=== PATIENT | female | born 1980 | race Two or more races ===

== ENCOUNTER 2018-09-30 09:44 | Emergency (ER) | payer MEDICAID ==
[~2018-09-30] VITALS: Ht 167.6 cm; Wt 94.3 kg
[2018-09-30 10:10] VITALS: BP 139/89
[2018-09-30 10:31] LABS: Urine Bacteria NONE SEEN /hpf (None Seen); Urine Blood TRACE /uL (Negative); Urine Mucus FEW (None Seen); Urine Specific Gravity 1.022 (1.001-1.035); Urine WBC <1 /hpf (0 - 5)
[2018-09-30] MEDS ORDERED: KETOROLAC TROMETH 60MG/2ML VIAL IM ONE (11:15)
== END 2018-09-30 12:16 | disposition home or self-care (01) ==
LOC: ER 09:44
DX: N83.202 Unspecified ovarian cyst, left side (principal)
CPT/HCPCS: 74176; 81001; 81025; 96372; 99284; J1885

== ENCOUNTER 2019-08-17 19:19 | Emergency (ER) | payer MEDICAID ==
[~2019-08-17] VITALS: Ht 162.6 cm; Wt 95.3 kg
[2019-08-17] MEDS ORDERED: diphenhdrAMINE HCL 25 MG CAP PO ONE ×2 (19:53→20:00)
[2019-08-17 21:05] VITALS: BP 112/60
[2019-08-17] MEDS ORDERED: methylPREDNISolone SOD SUCC 125 MG/2 ML VL IM ONE (21:15)
== END 2019-08-17 22:23 | disposition home or self-care (01) ==
LOC: ER 19:19
DX: T78.40XA Allergy, unspecified, initial encounter (principal)
CPT/HCPCS: 96372; 99283; J2930

== ENCOUNTER 2021-08-28 17:59 | Emergency (ER) | payer MEDICAID ==
[~2021-08-28] VITALS: Ht 165.1 cm; Wt 90.7 kg
[2021-08-28 20:10] VITALS: BP 127/85
[2021-08-28] MEDS ORDERED: ONDANSETRON ODT 4 MG TAB PO ONE (21:15)
[2021-08-28] MEDS ORDERED: HYDROcodone-ACET 10/325MG TAB PO ONE (21:15)
[2021-08-28 23:34] LABS: Basophils # (auto) 0 10 ^3/uL (0-0.2); Basophils % (auto) 0.7 % (0.0-2.0); Eosinophils # (auto) 0.2 10 ^3/uL (0-0.8); Lymphocytes # (auto) 1.7 10 ^3/uL (0.4-5.4); Mean Corpuscular Hemoglobin 21.9 pg (28.0-32.0); Monocytes # (auto) 0.8 10 ^3/uL (0-1.3); Neutrophils # (auto) 3.8 10 ^3/uL (1.6-8.6); White Blood Cell 6.5 10^3/uL (4.4-10.8)
[2021-08-28 23:35] LABS: Eosinophils % (auto) 3.3 % (0.0-7.0); Hematocrit 37.1 % (36.0-46.0); Hemoglobin 11.5 g/dL (12.2-16.2); Lymphocytes % (auto) 25.8 % (10.0-50.0); Mean Corpuscular Hgb Conc. 31.1 g/dL (32.0-36.0); Mean Corpuscular Volume 70.3 fL (80.0-100.0); Monocytes % (auto) 11.8 % (0.0-12.0); Neutrophils % (auto) 58.4 % (37.0-80.0); Red Blood Cells 5.28 10^6/uL (4.0-5.20)
[2021-08-28 23:36] LABS: Red Cell Distribution Width 20.2 % (11.8-14.3)
[2021-08-28 23:50] LABS: Albumin 3.7 g/dL (3.4-5.0); Calcium 8.5 mg/dL (8.5-10.1); Potassium 4.2 mmol/L (3.5-5.1)
[2021-08-28 23:58] LABS: BUN/Creatinine Ratio 17.9; Bilirubin, Total 0.2 mg/dL (0.2-1.0); CRP High Sensitivity 3.02 mg/dL (< 0.3)
[2021-08-29] MEDS ORDERED: cefTRIAXone SOD 1,000 MG VL IM ONE
== END 2021-08-29 01:30 | disposition home or self-care (01) ==
LOC: ER 17:59
DX: L03.317 Cellulitis of buttock (principal); E03.9 Hypothyroidism, unspecified; Z86.2 Personal history of diseases of the blood and blood-forming organs and certain disorders involving the immune mechanism
CPT/HCPCS: 36415; 72192; 80053; 83605; 85025; 86141; 87040; 96372; 99284; J0696; Q0162

== ENCOUNTER 2022-05-20 04:04 | Emergency (ER) | payer MEDICAID ==
[~2022-05-20] VITALS: Ht 162.6 cm; Wt 95.5 kg
[2022-05-20] MEDS ORDERED: ALBUTEROL SULF 2.5 MG/0.5ML(0.5%) NEB SOLN NEB ONE (04:45)
[2022-05-20] MEDS ORDERED: IPRATROPIUM BROM 0.5 MG/2.5ML INH SOL NEB ONE (04:45)
[2022-05-20 06:18] LABS: Basophils # (auto) 0.1 10 ^3/uL (0-0.2); Basophils % (auto) 1.1 % (0.0-2.0); Hemoglobin 12.2 g/dL (12.2-16.2); Monocytes # (auto) 0.7 10 ^3/uL (0-1.3); Monocytes % (auto) 7.6 % (0.0-12.0); Neutrophils # (auto) 5.3 10 ^3/uL (1.6-8.6); White Blood Cell 8.6 10^3/uL (4.4-10.8)
[2022-05-20 06:23] LABS: Eosinophils # (auto) 0.6 10 ^3/uL (0-0.8); Eosinophils % (auto) 7.5 % (0.0-7.0); Hematocrit 37.8 % (36.0-46.0); Lymphocytes % (auto) 22.7 % (10.0-50.0); Mean Corpuscular Hemoglobin 25.5 pg (28.0-32.0); Mean Corpuscular Hgb Conc. 32.3 g/dL (32.0-36.0); Neutrophils % (auto) 61.1 % (37.0-80.0); Red Blood Cells 4.78 10^6/uL (4.0-5.20); Red Cell Distribution Width 14.5 % (11.8-14.3)
[2022-05-20 06:25] LABS: Albumin 3.3 g/dL (3.4-5.0); Potassium 3.8 mmol/L (3.5-5.1)
[2022-05-20 06:30] LABS: BUN/Creatinine Ratio 13.6; Bilirubin, Total 0.4 mg/dL (0.2-1.0)
[2022-05-20] MEDS ORDERED: ALBUAER3 IN (08:43)
[2022-05-20] MEDS ORDERED: AZIT1POW PO (08:43)
[2022-05-20] MEDS ORDERED: METH4PAK PO (08:43)
[2022-05-20 08:44] VITALS: BP 133/86
[2022-05-20] MEDS ORDERED: ALBUTEROL SULF 2.5 MG/0.5ML(0.5%) NEB SOLN HHN ONE (08:45)
[2022-05-20] MEDS ORDERED: methylPREDNISolone SOD SUCC 40 MG/ML VL IM ONE (08:45)
[2022-05-20] MEDS ORDERED: IPRATROPIUM BROM 0.5 MG/2.5ML INH SOL HHN ONE (08:45)
== END 2022-05-20 09:03 | disposition home or self-care (01) ==
LOC: ER 04:04
DX: J20.9 Acute bronchitis, unspecified (principal); E03.9 Hypothyroidism, unspecified; R07.89 Other chest pain; Z86.2 Personal history of diseases of the blood and blood-forming organs and certain disorders involving the immune mechanism; Z20.822 Contact with and (suspected) exposure to COVID-19
CPT/HCPCS: 36415; 71046; 80053; 84484; 85025; 87426; 94640; 94644; 96372; 99285; J2920; J7644

== ENCOUNTER 2022-07-18 07:56 | Emergency (ER) | payer MEDICAID ==
[~2022-07-18] VITALS: Ht 162.6 cm; Wt 100.0 kg
[~2022-07-18 07:56] MED LIST: ALBUAER3 IN; AZIT1POW PO; METH4PAK PO
[2022-07-18 08:21] VITALS: BP 136/84
[2022-07-18] MEDS ORDERED: ALBUTEROL SULF 2.5 MG/0.5ML(0.5%) NEB SOLN NEB ONE (08:30)
== END 2022-07-18 10:44 | disposition home or self-care (01) ==
LOC: ER 07:56
DX: J06.9 Acute upper respiratory infection, unspecified (principal); Z20.822 Contact with and (suspected) exposure to COVID-19
CPT/HCPCS: 36415; 71046; 87426; 94640

== ENCOUNTER 2022-12-20 20:26 | Inpatient (IN) | payer MEDICAID ==
[~2022-12-20] VITALS: Ht 165.1 cm; Wt 69.7 kg
[2022-12-20] MEDS ORDERED: DexAMETHasone SOD PHOS 10MG/1ML VIAL INJ IM ONE (20:45)
[2022-12-20] MEDS ORDERED: ALBUTEROL SULF 2.5 MG/0.5ML(0.5%) NEB SOLN NEB ONE (20:45)
[2022-12-20] MEDS ORDERED: IPRATROPIUM BROM 0.5 MG/2.5ML INH SOL NEB ONE (20:45)
[2022-12-20 21:32] LABS: Monocytes # (auto) 0.5 10 ^3/uL (0-1.3); Neutrophils # (auto) 7.1 10 ^3/uL (1.6-8.6); White Blood Cell 9.2 10^3/uL (4.4-10.8)
[2022-12-20 21:33] LABS: Basophils # (auto) 0.1 10 ^3/uL (0-0.2); Basophils % (auto) 0.8 % (0.0-2.0); Eosinophils # (auto) 0.8 10 ^3/uL (0-0.8); Eosinophils % (auto) 8.3 % (0.0-7.0); Hemoglobin 12.5 g/dL (12.2-16.2); Lymphocytes # (auto) 0.8 10 ^3/uL (0.4-5.4); Lymphocytes % (auto) 8.7 % (10.0-50.0); Mean Corpuscular Hemoglobin 24.4 pg (28.0-32.0); Mean Corpuscular Hgb Conc. 32.1 g/dL (32.0-36.0); Mean Corpuscular Volume 75.9 fL (80.0-100.0); Monocytes % (auto) 5.1 % (0.0-12.0); Neutrophils % (auto) 77.1 % (37.0-80.0); Nucleated Red Blood Cells % 0.5 %; Red Blood Cells 5.14 10^6/uL (4.0-5.20)
[2022-12-20] MEDS ORDERED: ACETAMINOPHEN 500 MG TAB PO ONE (21:45)
[2022-12-20] MEDS ORDERED: ONDANSETRON HCL 4 MG/2 ML VIAL IM ONE (21:45)
[2022-12-20 21:48] LABS: INR 0.87 (0.9-1.15); Partial Thromboplastin Time 31.4 sec (24.6-33.4)
[2022-12-20 21:49] LABS: Albumin 3.8 g/dL (3.4-5.0); Calcium 9.3 mg/dL (8.5-10.1); Magnesium 2.3 mg/dL (1.6-2.6); Potassium 3.9 mmol/L (3.5-5.1)
[2022-12-20 21:51] LABS: BUN/Creatinine Ratio 13.5 (10.0-20.0)
[2022-12-20 21:53] LABS: Bilirubin, Total 0.3 mg/dL (0.2-1.0); Total Protein 8.1 g/dL (6.4-8.2)
[2022-12-20 23:02] LABS: Urine Bacteria NONE SEEN /hpf (None Seen); Urine Blood Negative /uL (Negative); Urine Mucus FEW (None Seen); Urine Specific Gravity 1.019 (1.001-1.035); Urine WBC <1 /hpf (0 - 5)
[2022-12-21] MEDS ORDERED: AZITHROMYCIN 250 MG TAB PO ONE (01:00)
[2022-12-21] MEDS ORDERED: cefTRIAXone SOD 1,000 MG VL IM ONE (01:00)
[2022-12-21] MEDS ORDERED: cefTRIAXone 1GM/50ML D5W 50 ML IV ONE (01:00)
[2022-12-21] MEDS ORDERED: AZITHROMYCIN 500MG/ 250ML 250 ML IV ONE (01:00)
[2022-12-21] MEDS ORDERED: HYDROmorphone HCL 2 MG/ML VL/or syr IV ONE (02:00)
[2022-12-21] MEDS ORDERED: ONDANSETRON HCL 4 MG/2 ML VIAL IV ONE (02:00)
[2022-12-21 02:43] VITALS: BP 118/71
[2022-12-21] MEDS ORDERED: ALBUTEROL SULF 2.5 MG/0.5ML(0.5%) NEB SOLN NEB PRN (02:45)
[2022-12-21] MEDS ORDERED: TEMAZEPAM 15 MG CAP PO PRN (02:45)
[2022-12-21] MEDS ORDERED: NITROGLYCERIN 0.4 MG SL TAB SL PRN (02:45)
[2022-12-21] MEDS: LEVOTHYROXINE SODIUM 50 MCG TAB PO SCH (06:31)
[2022-12-21 06:33] LABS: Urine WBC None Seen /hpf (0 - 5)
[2022-12-21 07:06] LABS: Urine Bacteria NONE SEEN /hpf (None Seen); Urine Blood Negative /uL (Negative); Urine Specific Gravity 1.009 (1.001-1.035)
[2022-12-21] MEDS: ACETAMINOPHEN 325 MG TAB PO PRN (09:38)
[2022-12-21] MEDS: SERTRALINE HCL 50 MG TAB PO SCH (09:39)
[2022-12-21] MEDS: PANTOPRAZOLE 40 MG TAB PO SCH (09:39)
[2022-12-21] MEDS: ENOXAPARIN SOD 40 MG/0.4 ML SYRINGE SC SCH (09:40)
[2022-12-21] MEDS: ONDANSETRON HCL 4 MG/2 ML VIAL IV PRN ×2 (09:42→16:31)
[2022-12-21] MEDS: MORPHINE SULFATE INJ 2 MG/ml SYRG IV PRN ×2 (11:41→16:39)
[2022-12-21] MEDS: SODIUM CHLORIDE 0.9% 1,000 ML IV SCH (14:36)
[2022-12-21] MEDS: IPRATROPIUM BROM 0.5 MG/2.5ML INH SOL NEB SCH (19:10)
[2022-12-21] MEDS: ALBUTEROL SULF 2.5 MG/0.5ML(0.5%) NEB SOLN NEB SCH (19:10)
[2022-12-21] MEDS: cefTRIAXone 1GM/50ML D5W 50 ML IV SCH (20:44)
[2022-12-21] MEDS ORDERED: LEVO150T10 PO (23:58)
[2022-12-21] MEDS ORDERED: LORA-622 PO (23:58)
[2022-12-22] MEDS: ACETAMINOPHEN 325 MG TAB PO PRN ×3 (00:14→22:18)
[2022-12-22] MEDS: SODIUM CHLORIDE 0.9% 1,000 ML IV SCH (02:30)
[2022-12-22 04:31] VITALS: BP_SYST 128; BP_SYST 149; BP_DIAS 56; BP_DIAS 86
[2022-12-22 06:00] LABS: Basophils # (auto) 0.1 10 ^3/uL (0-0.2); Eosinophils # (auto) 0.2 10 ^3/uL (0-0.8); Monocytes # (auto) 1.3 10 ^3/uL (0-1.3)
[2022-12-22] MEDS: ALBUTEROL SULF 2.5 MG/0.5ML(0.5%) NEB SOLN NEB SCH ×3 (06:00→18:44)
[2022-12-22] MEDS: IPRATROPIUM BROM 0.5 MG/2.5ML INH SOL NEB SCH ×3 (06:00→18:44)
[2022-12-22 06:03] LABS: Basophils % (auto) 1.2 % (0.0-2.0); Eosinophils % (auto) 1.8 % (0.0-7.0); Hematocrit 32.4 % (36.0-46.0); Lymphocytes # (auto) 1.7 10 ^3/uL (0.4-5.4); Lymphocytes % (auto) 14.1 % (10.0-50.0); Mean Corpuscular Hemoglobin 24.5 pg (28.0-32.0); Mean Corpuscular Hgb Conc. 33.9 g/dL (32.0-36.0); Mean Corpuscular Volume 72.2 fL (80.0-100.0); Monocytes % (auto) 10.2 % (0.0-12.0); Neutrophils % (auto) 72.7 % (37.0-80.0); Nucleated Red Blood Cells % 0.3 %; Red Blood Cells 4.49 10^6/uL (4.0-5.20); Red Cell Distribution Width 15.1 % (11.8-14.3); White Blood Cell 12.4 10^3/uL (4.4-10.8)
[2022-12-22] MEDS: LEVOTHYROXINE SODIUM 50 MCG TAB PO SCH (06:15)
[2022-12-22 06:22] LABS: BUN/Creatinine Ratio 18.3 (10.0-20.0); Calcium 8.6 mg/dL (8.5-10.1); Potassium 3.6 mmol/L (3.5-5.1)
[2022-12-22 09:00] VITALS: BP 104/67
[2022-12-22] MEDS: PANTOPRAZOLE 40 MG TAB PO SCH (09:28)
[2022-12-22] MEDS: SERTRALINE HCL 50 MG TAB PO SCH (09:28)
[2022-12-22] MEDS: ENOXAPARIN SOD 40 MG/0.4 ML SYRINGE SC SCH (09:29)
[2022-12-22] MEDS ORDERED: LORATADINE 10 MG TAB PO SCH (10:00)
[2022-12-22 13:00] VITALS: BP_SYST 127; BP_SYST 150; BP_DIAS 78
[2022-12-22 16:43] VITALS: BP 123/70
[2022-12-22 20:00] VITALS: BP 126/71
[2022-12-22] MEDS: cefTRIAXone 1GM/50ML D5W 50 ML IV SCH (20:57)
[2022-12-22] MEDS: methylPREDNISolone SOD SUCC 40 MG/ML VL IV SCH (20:58)
[2022-12-22] MEDS: LORATADINE 10 MG TAB PO SCH (20:58)
[2022-12-22] MEDS: MONTELUKAST SODIUM 10 MG TAB PO SCH ×2 (20:58)
[2022-12-22 22:00] VITALS: BP_SYST 126; BP_SYST 131; BP_DIAS 52; BP_DIAS 71
[2022-12-22] MEDS: AZITHROMYCIN 500MG/ 250ML 250 ML IV SCH ×2 (22:18)
[2022-12-23 05:00] VITALS: BP 119/76
[2022-12-23 06:46] LABS: Basophils # (auto) 0 10 ^3/uL (0-0.2); Eosinophils # (auto) 0.1 10 ^3/uL (0-0.8); Mean Corpuscular Hemoglobin 24.5 pg (28.0-32.0); Monocytes # (auto) 0.2 10 ^3/uL (0-1.3)
[2022-12-23 06:54] LABS: Basophils % (auto) 0.3 % (0.0-2.0); Hematocrit 34.6 % (36.0-46.0); Hemoglobin 11.2 g/dL (12.2-16.2); Lymphocytes # (auto) 1.2 10 ^3/uL (0.4-5.4); Lymphocytes % (auto) 11.9 % (10.0-50.0); Mean Corpuscular Hgb Conc. 32.5 g/dL (32.0-36.0); Mean Corpuscular Volume 75.1 fL (80.0-100.0); Monocytes % (auto) 2.2 % (0.0-12.0); Neutrophils # (auto) 8.3 10 ^3/uL (1.6-8.6); Neutrophils % (auto) 84.6 % (37.0-80.0); Red Cell Distribution Width 15.4 % (11.8-14.3); White Blood Cell 9.8 10^3/uL (4.4-10.8)
[2022-12-23] MEDS ORDERED: LEVOTHYROXINE SODIUM 112 MCG TAB PO SCH (07:00)
[2022-12-23 07:28] LABS: Potassium 4.3 mmol/L (3.5-5.1)
[2022-12-23 07:32] LABS: Calcium 8.3 mg/dL (8.5-10.1)
[2022-12-23] MEDS: ALBUTEROL SULF 2.5 MG/0.5ML(0.5%) NEB SOLN NEB SCH ×2 (07:34→13:31)
[2022-12-23] MEDS: IPRATROPIUM BROM 0.5 MG/2.5ML INH SOL NEB SCH ×2 (07:34→13:31)
[2022-12-23 08:00] VITALS: BP 126/85
[2022-12-23 09:00] VITALS: BP 126/85
[2022-12-23] MEDS: methylPREDNISolone SOD SUCC 40 MG/ML VL IV SCH (09:27)
[2022-12-23] MEDS: ACETAMINOPHEN 325 MG TAB PO PRN (09:28)
[2022-12-23] MEDS: ENOXAPARIN SOD 40 MG/0.4 ML SYRINGE SC SCH (09:28)
[2022-12-23] MEDS: SERTRALINE HCL 50 MG TAB PO SCH (09:29)
[2022-12-23] MEDS: PANTOPRAZOLE 40 MG TAB PO SCH (09:29)
[2022-12-23] MEDS: LORATADINE 10 MG TAB PO SCH (09:29)
[2022-12-23] MEDS ORDERED: LEV112T PO (10:51)
[2022-12-23] MEDS ORDERED: LEVO500T31 PO (10:51)
[2022-12-23] MEDS ORDERED: ALBUAER3 IN (10:51)
[2022-12-23 13:00] VITALS: BP 121/77
== END 2022-12-23 17:23 | disposition home or self-care (01) | DRG 720 ==
LOC: ER 20:26 → OVERFLOW 12-21 02:32 → WEST WING 12-21 22:10
PROVIDERS: ADMIT Nurse Practitioner; ATTEND Nurse Practitioner Acute Care
DX: A41.9 Sepsis, unspecified organism (principal); J96.01 Acute respiratory failure with hypoxia; J15.6 Pneumonia due to other Gram-negative bacteria; J44.0 Chronic obstructive pulmonary disease with (acute) lower respiratory infection; J45.901 Unspecified asthma with (acute) exacerbation; E03.9 Hypothyroidism, unspecified; E66.9 Obesity, unspecified; Z20.822 Contact with and (suspected) exposure to COVID-19; F32.A Depression, unspecified; Z68.25 Body mass index [BMI] 25.0-25.9, adult; Z86.16 Personal history of COVID-19
CPT/HCPCS: 36415; 71045; 80048; 80053; 81001; 83735; 83880; 84443; 84484; 84702; 85025; 85610; 85730; 86141; 87426; 94640; 96365; 96367; 96372; 96375; 99291; G0378; J0696; J1100; J2405

== ENCOUNTER 2023-06-30 12:32 | Inpatient (IN) | payer MEDICAID ==
[~2023-06-30] VITALS: Ht 167.6 cm; Wt 97.0 kg
[~2023-06-30 12:32] MED LIST changes: +LEV112T PO; +LEVO150T10 PO; +LEVO500T31 PO; +LORA-622 PO
[2023-06-30] MEDS ORDERED: ALBUTEROL SULF 2.5 MG/0.5ML(0.5%) NEB SOLN NEB ONE ×2 (13:00→19:15)
[2023-06-30] MEDS ORDERED: IPRATROPIUM BROM 0.5 MG/2.5ML INH SOL NEB ONE ×3 (13:00→19:15)
[2023-06-30] MEDS ORDERED: methylPREDNISolone SOD SUCC 40 MG/ML VL IV ONE (13:15)
[2023-06-30 15:00] LABS: Basophils # (auto) 0 10 ^3/uL (0-0.2); Basophils % (auto) 0.3 % (0.0-2.0); Eosinophils # (auto) 0.6 10 ^3/uL (0-0.8); Hematocrit 35.3 % (36.0-46.0); Hemoglobin 10.9 g/dL (12.2-16.2); Lymphocytes # (auto) 1.2 10 ^3/uL (0.4-5.4); Lymphocytes % (auto) 10.5 % (10.0-50.0); Mean Corpuscular Hemoglobin 22.4 pg (28.0-32.0); Mean Corpuscular Volume 72.4 fL (80.0-100.0); Monocytes # (auto) 0.7 10 ^3/uL (0-1.3); Monocytes % (auto) 6.2 % (0.0-12.0); Nucleated Red Blood Cells % 0.1 %; Red Blood Cells 4.87 10^6/uL (4.0-5.20); Red Cell Distribution Width 17.7 % (11.8-14.3); White Blood Cell 11.5 10^3/uL (4.4-10.8)
[2023-06-30 15:52] LABS: Alanine Aminotransferase 15 U/L (7-40); Albumin 4.7 g/dL (3.2-4.8); Alkaline Phosphatase 94 U/L (46-116); Anion Gap 8 (5-15); Aspartate Aminotransferase 12 U/L (13-40); BUN/Creatinine Ratio 11.2 (10.0-20.0); Bilirubin, Total 0.2 mg/dL (0.2-1.0); Blood Urea Nitrogen 10 mg/dL (9-23); Calcium 9.4 mg/dL (8.5-10.1); Carbon Dioxide 25 mmol/L (20-30); Chloride 107 mmol/L (98-107); Glucose 111 mg/dL (74-106); Potassium 3.9 mmol/L (3.5-5.1); Sodium 140 mmol/L (136-145); Total Protein 7.3 g/dL (5.7-8.2)
[2023-06-30] MEDS ORDERED: HYDROcodone-ACET 5/325MG TAB PO ONE (17:45)
[2023-06-30] MEDS ORDERED: ASPirin 325 MG TAB PO ONE (17:45)
[2023-06-30] MEDS ORDERED: MORPHINE SULFATE INJ 2 MG/ml SYRG IV PRN (19:15)
[2023-06-30] MEDS ORDERED: ONDANSETRON HCL 4 MG/2 ML VIAL IV PRN (19:15)
[2023-06-30] MEDS ORDERED: cefTRIAXone 1GM/50ML D5W 50 ML IV ONE (19:15)
[2023-06-30] MEDS ORDERED: ACETAMINOPHEN 325 MG TAB PO PRN (19:15)
[2023-06-30] MEDS ORDERED: DOCUSATE SOD 100 MG CAP PO PRN (19:15)
[2023-06-30 19:22] VITALS: PULSE 92; RESP 20; O2SAT 96
[2023-06-30 19:27] VITALS: BP 149/91; PULSE 96; RESP 24; TEMP 97.5; O2SAT 94
[2023-06-30] MEDS ORDERED: IPRATROPIUM BROM 0.5 MG/2.5ML INH SOL ONE (19:27)
[2023-06-30] MEDS ORDERED: ALBUTEROL SULF 2.5 MG/0.5ML(0.5%) NEB SOLN ONE (19:27)
[2023-06-30 19:32] VITALS: PULSE 97; RESP 20; O2SAT 99
[2023-06-30] MEDS ORDERED: AZITHROMYCIN 500MG/ 250ML 250 ML IV ONE (20:15)
[2023-07-01] VITALS (15 sets, daily range): BP systolic 115–130; BP diastolic 66–78; PULSE 69–93; RESP 16–20; TEMP 97.7–98.6; O2SAT 92–99
[2023-07-01] MEDS: IPRATROPIUM BROM 0.5 MG/2.5ML INH SOL NEB PRN ×3 (00:56→13:41)
[2023-07-01] MEDS: ALBUTEROL SULF 2.5 MG/0.5ML(0.5%) NEB SOLN NEB PRN ×3 (00:56→13:41)
[2023-07-01] MEDS: methylPREDNISolone SOD SUCC 40 MG/ML VL IV SCH ×3 (01:50→21:40)
[2023-07-01] MEDS: HYDROcodone-ACET 5/325MG TAB PO PRN ×3 (02:25→21:53)
[2023-07-01] MEDS: guaiFENesin-CODEINE Liq 5 ML UD PO PRN ×3 (02:26→21:53)
[2023-07-01 03:19] LABS: COVID19 ANTIGEN SOFIA FIA NEGATIVE (NEGATIVE)
[2023-07-01 06:05] LABS: Rapid Influenza A Negative (Negative); Rapid Influenza B Negative (Negative)
[2023-07-01 06:09] LABS: Alanine Aminotransferase 12 U/L (7-40); Alkaline Phosphatase 97 U/L (46-116); Anion Gap 11 (5-15); Aspartate Aminotransferase 13 U/L (13-40); BUN/Creatinine Ratio 10.5 (10.0-20.0); Blood Urea Nitrogen 10 mg/dL (9-23); Carbon Dioxide 20 mmol/L (20-30); Chloride 106 mmol/L (98-107); Glucose 221 mg/dL (74-106); Sodium 137 mmol/L (136-145)
[2023-07-01 06:10] LABS: % Iron Saturation 6.6 % (15-50); Albumin 4.7 g/dL (3.2-4.8)
[2023-07-01 06:11] LABS: Bilirubin, Total 0.2 mg/dL (0.2-1.0); Total Protein 7.5 g/dL (5.7-8.2)
[2023-07-01] MEDS ORDERED: LEVOTHYROXINE SODIUM 50 MCG TAB PO SCH (07:00)
[2023-07-01 07:24] LABS: Basophils # (auto) 0 10 ^3/uL (0-0.2); Basophils % (auto) 0.2 % (0.0-2.0); Hemoglobin 10.2 g/dL (12.2-16.2); Mean Corpuscular Hemoglobin 22.6 pg (28.0-32.0); Monocytes # (auto) 0.1 10 ^3/uL (0-1.3)
[2023-07-01 07:25] LABS: Eosinophils # (auto) 0.1 10 ^3/uL (0-0.8); Eosinophils % (auto) 0.5 % (0.0-7.0); Hematocrit 32.6 % (36.0-46.0); Lymphocytes # (auto) 0.9 10 ^3/uL (0.4-5.4); Lymphocytes % (auto) 7.6 % (10.0-50.0); Mean Corpuscular Hgb Conc. 31.2 g/dL (32.0-36.0); Mean Corpuscular Volume 72.4 fL (80.0-100.0); Monocytes % (auto) 0.9 % (0.0-12.0); Neutrophils # (auto) 10.9 10 ^3/uL (1.6-8.6); Neutrophils % (auto) 90.8 % (37.0-80.0); Red Blood Cells 4.51 10^6/uL (4.0-5.20); Red Cell Distribution Width 17.3 % (11.8-14.3)
[2023-07-01] MEDS: cefTRIAXone 1GM/50ML D5W 50 ML IV SCH (09:24)
[2023-07-01] MEDS: AZITHROMYCIN 500MG/ 250ML 250 ML IV SCH (09:24)
[2023-07-01] MEDS: PANTOPRAZOLE 40 MG TAB PO SCH (09:25)
[2023-07-01] MEDS: LORATADINE 10 MG TAB PO SCH (09:25)
[2023-07-01] MEDS ORDERED: LEVOTHYROXINE SODIUM 112 MCG TAB PO ONE (13:00)
[2023-07-01] MEDS ORDERED: TEMAZEPAM 15 MG CAP PO ONE (23:15)
[2023-07-02 05:00] VITALS: BP 105/60; PULSE 72; RESP 14; TEMP 97.4; O2SAT 93
[2023-07-02] MEDS ORDERED: LEVOTHYROXINE SODIUM 112 MCG TAB PO SCH (07:00)
[2023-07-02 09:00] VITALS: BP 118/73; PULSE 79; RESP 18; TEMP 97.4; O2SAT 95
[2023-07-02] MEDS ORDERED: ALBU0.084 NEB (09:13)
[2023-07-02] MEDS ORDERED: METH4PAK PO (09:13)
[2023-07-02] MEDS ORDERED: ALBUAER3 IN (09:13)
[2023-07-02] MEDS ORDERED: AZIT500T66 PO (09:13)
[2023-07-02] MEDS: methylPREDNISolone SOD SUCC 40 MG/ML VL IV SCH (09:56)
[2023-07-02] MEDS: cefTRIAXone 1GM/50ML D5W 50 ML IV SCH (09:56)
[2023-07-02] MEDS: LORATADINE 10 MG TAB PO SCH (09:56)
[2023-07-02] MEDS: PANTOPRAZOLE 40 MG TAB PO SCH (09:56)
[2023-07-02] MEDS: AZITHROMYCIN 500MG/ 250ML 250 ML IV SCH (09:57)
[2023-07-02 10:00] VITALS: PULSE 80; RESP 18; O2SAT 93
[2023-07-02] MEDS: IPRATROPIUM BROM 0.5 MG/2.5ML INH SOL NEB PRN (10:00)
[2023-07-02] MEDS: ALBUTEROL SULF 2.5 MG/0.5ML(0.5%) NEB SOLN NEB PRN (10:00)
[2023-07-02 10:06] VITALS: PULSE 78; RESP 18; O2SAT 99
[2023-07-02 13:00] VITALS: BP 110/75; PULSE 90; RESP 18; TEMP 98; O2SAT 97
[2023-07-02 13:54] VITALS: TEMP 36.3
[2023-07-04 09:13] LABS: Hepatitis B Surface Antigen Negative (Negative)
[2023-07-04 09:34] LABS: Hepatitis C Antibody Negative (Negative)
== END 2023-07-02 15:30 | disposition home or self-care (01) | DRG 137 ==
LOC: ER 12:32 → OVERFLOW 19:12 → CENTRAL 07-01 04:08
PROVIDERS: ADMIT Nurse Practitioner Family; ATTEND Family Medicine
DX: J15.69 Pneumonia due to other Gram-negative bacteria (principal); J45.901 Unspecified asthma with (acute) exacerbation; J15.9 Unspecified bacterial pneumonia; E03.9 Hypothyroidism, unspecified; D72.829 Elevated white blood cell count, unspecified; Z86.16 Personal history of COVID-19; D50.9 Iron deficiency anemia, unspecified; Z20.822 Contact with and (suspected) exposure to COVID-19
CPT/HCPCS: 36415; 36600; 71045; 80053; 82728; 82805; 83540; 83550; 84443; 84484; 85025; 85379; 86803; 87040; 87070; 87205; 87340; 87426; 87804; 94640; 96374; 99291; G0378; J0696